=== PATIENT | female | born 1975 | race African-American/Black ===

== ENCOUNTER → 2018-09-20 | Outpatient (CLI) | payer OTHER ==
[~2018-09-20] MED LIST: ALL DAY ALLERGY5 MG PO; BIOTIN1 MG PO; COLACE100 MG PO; EXCEDRIN MIGRA1 EAC1 PO; FISH OIL 1,001000 M2 PO; HYDROCHLOROTHIA25 M2 PO; IBUPROFEN 200200 M1 PO; LISINOPRIL10 MG PO; MULTIVITAMINS1 EAC7 PO; NORCO 5-325 TA1 EACH PO; ONDANSETRON HCL4 M2 PO; VITAMINC500 PO; ZOFRAN4 MG PO
== END ==
LOC: M.LAB 15:50
DX: Z34.01 Encounter for supervision of normal first pregnancy, first trimester (principal); Z3A.08 8 weeks gestation of pregnancy

== ENCOUNTER → 2021-02-01 | Outpatient (CLI) | payer OTHER | LOC: M.RAD 14:34 | DX: Z12.31 Encounter for screening mammogram for malignant neoplasm of breast (principal) ==

== ENCOUNTER → 2021-02-10 | Outpatient (CLI) | payer OTHER | LOC: M.ULTRA 11:13 | DX: N60.01 Solitary cyst of right breast (principal) ==